=== PATIENT | female | born 1930 | race African-American/Black ===

== ENCOUNTER 2018-08-22 14:42 | Observation (INO) | payer BC, OTHER ==
--- NOTE | 2018-08-22 14:53 | PDOC ---
Rapid Medical Evaluation Time Seen by Provider: 08/22/18 14:48 Medical Evaluation: 08/22/18 14:50 I have performed a brief in-person evaluation of this patient. The patient presents with a chief complaint of: RIAVS x3 days Pertinent physical exam findings: trace pedal edema. Lungs CTAB. Regular tachycardic. No m/r/g. I have ordered the following: cardiac workup The patient will proceed to the ED for further evaluation. Discharge Disposition - Diagnosis RIVAS (dyspnea on exertion) - Referrals - Patient Instructions - Post Discharge Activity
[2018-08-22 15:39] LABS: BASO % 0.5 % (0-2.0); EOS % 1.5 % (0-4.5); HEMATOCRIT 40.9 % (32.4-45.2); HEMOGLOBIN 13.3 GM/dL (10.7-15.3); LYMPH % 25.9 % (8-40); MCH 29.2 pg (25.7-33.7); MCHC 32.5 g/dl (32.0-36.0); MEAN CELL VOLUME 89.8 fl (80-96); NEUT % 61.1 % (42.8-82.8); PLATELET COUNT 130 K/MM3 (134-434); RBC 4.55 M/mm3 (3.60-5.2); RDW 13.7 % (11.6-15.6); WHITE BLOOD COUNT 4.3 K/mm3 (4.0-10.0)
[2018-08-22 15:48] LABS: INR 1.66 (0.83-1.09); PROTHROMBIN TIME (PATIENT) 19.7 SEC (9.7-13.0)
[2018-08-22 16:33] LABS: ALK PHOS 79 U/L (45-117); ANION GAP 6 MMOL/L (8-16); BILIRUBIN,TOTAL 0.6 mg/dL (0.2-1); BLOOD UREA NITROGEN 12 mg/dL (7-18); CALCIUM 8.7 mg/dL (8.5-10.1); CHLORIDE 108 mmol/L (98-107); CO2 27 mmol/L (21-32); CREATININE 0.8 mg/dL (0.55-1.3); GLUCOSE,RANDOM 91 mg/dL (74-106); N-TERMINAL BNP 461.4 pg/ml (5-450); POTASSIUM 3.9 mmol/L (3.5-5.1); SGOT/AST 26 U/L (15-37); SGPT/ALT 25 U/L (13-61); SODIUM 141 mmol/L (136-145); TOT PROT 7.5 g/dl (6.4-8.2)
--- NOTE | 2018-08-22 16:59 | PDOC ---
History of Present Illness - General Chief Complaint: Chest Pain Stated Complaint: SOB, CHEST PAIN Time Seen by Provider: 08/22/18 14:48 History Source: Patient - History of Present Illness Timing/Duration: reports: other Associated Symptoms: denies: cough, fever/chills, wheezing Past History - Past Medical History Allergies/Adverse Reactions: Allergies Allergy/AdvReac Type Severity Reaction Status Date / Time No Known Allergies Allergy Verified 08/22/18 15:13 Home Medications: Ambulatory Orders Apixaban [Eliquis] 0 mg PO DAILY 08/22/18 COPD: No - Immunization History Immunization Up to Date: Yes - Suicide/Smoking/Psychosocial Hx Smoking History: Never smoked Hx Alcohol Use: No Drug/Substance Use Hx: No Review of Systems - Review of Systems Constitutional: No: Chills, Fever Respiratory: Yes: Shortness of Breath. No: Cough Cardiac (ROS): No: Chest Pain, Lightheadedness, Palpitations, Syncope *Physical Exam - Vital Signs Last Vital Signs Temp Pulse Resp BP Pulse Ox 97.9 F 96 H 16 137/78 95 08/22/18 14:54 08/22/18 14:54 08/22/18 14:54 08/22/18 14:54 08/22/18 16:22 - Physical Exam General Appearance: Yes: Appropriately Dressed, Apparent Distress HEENT: positive: Normal Voice Neck: positive: Supple Respiratory/Chest: positive: Chest Tender, Lungs Clear. negative: Normal Breath Sounds Cardiovascular: positive: Regular Rate, S1, S2 Gastrointestinal/Abdominal: positive: Soft. negative: Tender Extremity: positive: Normal Inspection. negative: Swelling Integumentary: positive: Dry, Warm Neurologic: positive: Fully Oriented, Alert, Normal Mood/Affect Moderate Sedation - Procedure Monitoring Vital Signs: Procedure Monitoring Vital Signs Temperature 97.9 F 08/22/18 14:54 Pulse Rate 96 H 08/22/18 14:54 Respiratory Rate 16 08/22/18 14:54 Blood Pressure 137/78 08/22/18 14:54 O2 Sat by Pulse Oximetry (%) 95 08/22/18 16:22 ED Treatment Course - LABORATORY CBC & Chemistry Diagram: 08/22/18 15:26 08/22/18 15:26 - ADDITIONAL ORDERS Additional order review: Laboratory Results 08/22/18 08/22/18 15:26 15:26 PT with INR 19.70 H INR 1.66 H Sodium 141 Potassium 3.9 Chloride 108 H Carbon Dioxide 27 Anion Gap 6 L BUN 12 Creatinine 0.8 Creat Clearance w eGFR > 60 Random Glucose 91 Calcium 8.7 Magnesium 2.0 Total Bilirubin 0.6 AST 26 ALT 25 Alkaline Phosphatase 79 Creatine Kinase 131 Troponin I < 0.02 B-Natriuretic Peptide 461.4 H Total Protein 7.5 Albumin 4.0 08/22/18 15:26 RBC 4.55 MCV 89.8 MCHC 32.5 RDW 13.7 MPV 10.0 Neutrophils % 61.1 Lymphocytes % 25.9 Monocytes % 11.0 H Eosinophils % 1.5 Basophils % 0.5 Medical Decision Making - Medical Decision Making 08/22/18 16:58 88 yo F, on eliquis "to prevent stroke" per pt but denies h/o TIA/CVA or any other medical hx, currently works and teach swimming per pt, here w/ SOB x 3 days, mostly with exertion and when tying my shoe laces per pt, No CP, diaphoresis. n/v. No h/o same. No recent cardiac w/u See exam RIVAS Stable and well terra in ED -ekg -cxr -labs -anticipate admission 08/22/18 17:14 08/22/18 17:36 EKG/cxr/labs unremarkable. Will admit to obs of stress/echo as d/w ED attg *DC/Admit/Observation/Transfer Diagnosis at time of Disposition: RIVAS (dyspnea on exertion) - Discharge Dispostion Condition at time of disposition: Fair Decision to Admit order: Yes - Referrals Referrals: South Wolfe MD [Primary Care Provider] - - Patient Instructions - Post Discharge Activity
--- NOTE | 2018-08-22 18:00 | EKG ---
Test Reason : Blood Pressure : / mmHG Vent. Rate : 078 BPM Atrial Rate : 078 BPM P-R Int : 184 ms QRS Dur : 116 ms QT Int : 422 ms P-R-T Axes : 036 -53 081 degrees QTc Int : 481 ms NORMAL SINUS RHYTHM LEFT AXIS DEVIATION SEPTAL INFARCT , AGE UNDETERMINED ABNORMAL ECG NO PREVIOUS ECGS AVAILABLE Confirmed by JANNETH GARIBAY MD ([id number]) on 08/22/2018 6:00:17 PM Referred By: Confirmed By:JANNETH GARIBAY MD
--- NOTE | 2018-08-22 19:57 | HP ---
CHIEF COMPLAINT: Shortness of breath PCP: Aiden HISTORY OF PRESENT ILLNESS: 88yo woman, with unclear medical history (on eliquis to "prevent stroke" and says she has high cholesterol) c/o shortness of breath for the past 3 days. Pt reports that she went to see her PCP- Dr. Wolfe and he told her to come to ER to be evaluated. Negative orthopnea, denied cough, chest pain, or palpitations. In ER, patient was found to be ambulating across hallway. ER course was notable for: (1) EKG (2) CXR (3) Recent Travel: denied PAST MEDICAL HISTORY: DLP, cardiac arrythmia? PAST SURGICAL HISTORY: none Social History: Smoking: no Alcohol: no Drugs: no Family History: none reported Allergies No Known Allergies Allergy (Verified 08/22/18 15:13) HOME MEDICATIONS: Home Medications Medication Instructions Recorded Apixaban [Eliquis] 0 mg PO DAILY 08/22/18 REVIEW OF SYSTEMS CONSTITUTIONAL: Absent: fever, chills, diaphoresis, generalized weakness, malaise, loss of appetite, weight change HEENT: Absent: rhinorrhea, nasal congestion, throat pain, throat swelling, difficulty swallowing, mouth swelling, ear pain, eye pain, visual changes CARDIOVASCULAR: Absent: chest pain, syncope, palpitations, irregular heart rate, lightheadedness , peripheral edema RESPIRATORY: Absent: cough, , orthopnea, wheezing, stridor, hemoptysis Present: shortness of breath, dyspnea with exertion GASTROINTESTINAL: Absent: abdominal pain, abdominal distension, nausea, vomiting, diarrhea, constipation, melena, hematochezia GENITOURINARY: Absent: dysuria, frequency, urgency, hesitancy, hematuria, flank pain, genital pain MUSCULOSKELETAL: Absent: myalgia, arthralgia, joint swelling, back pain, neck pain SKIN: Absent: rash, itching, pallor HEMATOLOGIC/IMMUNOLOGIC: Absent: easy bleeding, easy bruising, lymphadenopathy, frequent infections ENDOCRINE: Absent: unexplained weight gain, unexplained weight loss, heat intolerance, cold intolerance NEUROLOGIC: Absent: headache, focal weakness or paresthesias, dizziness, unsteady gait, seizure, mental status changes, bladder or bowel incontinence PSYCHIATRIC: Absent: anxiety, depression, suicidal or homicidal ideation, hallucinations. PHYSICAL EXAMINATION Vital Signs - 24 hr 08/22/18 08/22/18 14:54 16:22 Temperature 97.9 F Pulse Rate 96 H Respiratory 16 Rate Blood Pressure 137/78 O2 Sat by Pulse 95 95 Oximetry (%) GENERAL: Awake, alert, and fully oriented, in no acute distress. HEAD: Normal with no signs of trauma. EYES: Pupils equal, round and reactive to light, extraocular movements intact, sclera anicteric, conjunctiva clear. No lid lag. EARS, NOSE, THROAT: Ears normal, nares patent, oropharynx clear without exudates. Moist mucous membranes. NECK: Normal range of motion, supple without lymphadenopathy, JVD, or masses. LUNGS: Breath sounds equal, clear to auscultation bilaterally. No wheezes, and no crackles. No accessory muscle use. HEART: Regular rate and rhythm, normal S1 and S2 without murmur, rub or gallop. ABDOMEN: Soft, nontender, not distended, normoactive bowel sounds, no guarding, no rebound, no masses. MUSCULOSKELETAL: Normal range of motion at all joints. No bony deformities or tenderness. No CVA tenderness. UPPER EXTREMITIES: 2+ pulses, warm, well-perfused. No cyanosis. No clubbing. No peripheral edema. LOWER EXTREMITIES: 2+ pulses, warm, well-perfused. No calf tenderness. No peripheral edema. NEUROLOGICAL: Cranial nerves II-XII intact. Normal speech. Normal gait. PSYCHIATRIC: irritated mood SKIN: Warm, dry, normal turgor, no rashes or lesions noted, normal capillary refill. Laboratory Results - last 24 hr 08/22/18 08/22/18 08/22/18 15:26 15:26 15:26 WBC 4.3 RBC 4.55 Hgb 13.3 Hct 40.9 MCV 89.8 MCH 29.2 MCHC 32.5 RDW 13.7 Plt Count 130 L MPV 10.0 Absolute Neuts (auto) 2.7 Neutrophils % 61.1 Lymphocytes % 25.9 Monocytes % 11.0 H Eosinophils % 1.5 Basophils % 0.5 Nucleated RBC % 0 PT with INR 19.70 H INR 1.66 H Sodium 141 Potassium 3.9 Chloride 108 H Carbon Dioxide 27 Anion Gap 6 L BUN 12 Creatinine 0.8 Creat Clearance w eGFR > 60 Random Glucose 91 Calcium 8.7 Magnesium 2.0 Total Bilirubin 0.6 AST 26 ALT 25 Alkaline Phosphatase 79 Creatine Kinase 131 Troponin I < 0.02 B-Natriuretic Peptide 461.4 H Total Protein 7.5 Albumin 4.0 ekg reviewed cxr reviewed ASSESSMENT/PLAN: #88yo woman with isolated shortness of breath and no clinical evidence of acute cardiac or pulmonary disease at this time, including CHF. 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 Troponin was negative x1. Vital signs currently wnl. Uncertain medications (patient does not remember her medications) and will have to reconcile in morning. -obs- tele -trend troponin -cardiology consult was placed -echo orderd -atorvastatin 10mg daily for dyslipidemia -c/w eliquis 2.5mg bid, will verify reason with PCP (also DVT ppx) -low Na diet ordered -reconcile medications in am Visit type - Emergency Visit Emergency Visit: Yes Care time: The patient presented to the Emergency Department on the above date and was hospitalized for further evaluation of their emergent condition. - New Patient This patient is new to me today: Yes Date on this admission: 08/22/18 - Critical Care Critical Care patient: No
[2018-08-22] MEDS ORDERED: APIXABAN 5 MG TABLET PO ONE (22:49)
[2018-08-22] MEDS: APIXABAN 2.5 MG TABLET PO SCH (23:22)
[2018-08-23 02:35] VITALS: BMI 34.7
[2018-08-23 07:27] LABS: HEMOGLOBIN 13.3 GM/dL (10.7-15.3); MCH 28.7 pg (25.7-33.7); MCHC 31.7 g/dl (32.0-36.0); MEAN CELL VOLUME 90.4 fl (80-96); MEAN PLT VOLUME 10.2 fl (7.5-11.1); PLATELET COUNT 137 K/MM3 (134-434); RBC 4.64 M/mm3 (3.60-5.2); RDW 13.9 % (11.6-15.6); WHITE BLOOD COUNT 4.2 K/mm3 (4.0-10.0)
[2018-08-23 08:08] LABS: ANION GAP 7 MMOL/L (8-16); BLOOD UREA NITROGEN 10 mg/dL (7-18); CALCIUM 8.9 mg/dL (8.5-10.1); CHLORIDE 107 mmol/L (98-107); CO2 26 mmol/L (21-32); CREATININE 0.8 mg/dL (0.55-1.3); GLUCOSE,RANDOM 96 mg/dL (74-106); POTASSIUM 3.8 mmol/L (3.5-5.1); SODIUM 140 mmol/L (136-145)
[2018-08-23 08:11] LABS: CHOLESTEROL 191 mg/dL (50-200); HDL CHOLESTEROL 59 mg/dL (40-60); TRIGLYCERIDES 82 mg/dL (0-150)
--- NOTE | 2018-08-23 09:25 | PN ---
Progress Note, Physician Chief Complaint: AWAKE ALERT SENT FROM MY OFFICE BECAUSE SHE HAD DYSPNEA ON EXERTION C/O PRESSURE TO CHEST/STERNAL AREA - Current Medication List Current Medications: Active Medications Apixaban (Eliquis -) 2.5 mg PO BID [facility] Last Admin: 08/22/18 23:22 Dose: 2.5 mg Atorvastatin Calcium (Lipitor -) 10 mg PO [facility] - Objective Vital Signs: Vital Signs Temperature 98.0 F 08/23/18 04:03 Pulse Rate 74 08/23/18 04:03 Respiratory Rate 16 08/23/18 04:03 Blood Pressure 145/70 08/23/18 04:03 O2 Sat by Pulse Oximetry (%) 93 L 08/23/18 02:48 Constitutional: Yes: Mild Distress Eyes: Yes: WNL HENT: Yes: WNL Neck: Yes: WNL Cardiovascular: Yes: Pulse Irregular Respiratory: Yes: Diminished Gastrointestinal: Yes: WNL Genitourinary: Yes: WNL Musculoskeletal: Yes: WNL Extremities: Yes: WNL Edema: No Peripheral Pulses WNL: Yes Integumentary: Yes: WNL Wound/Incision: Yes: Clean/Dry Neurological: Yes: Unsteady Gait ...Motor Strength: LLE, RLE Psychiatric: Yes: WNL Labs: CBC, BMP 08/23/18 06:30 08/23/18 06:30 INR, PTT INR 1.66 (0.83-1.09) H 08/22/18 15:26 Problem List - Problems (1) Atrial fibrillation Code(s): I48.91 - UNSPECIFIED ATRIAL FIBRILLATION (2) Lipidemia Code(s): E78.5 - HYPERLIPIDEMIA, UNSPECIFIED (3) RIVAS (dyspnea on exertion) Code(s): R06.09 - OTHER FORMS OF DYSPNEA Assessment/Plan ECHO AND STRESS TEST ORDERED H/O AFIB HAS SEEN DR MCDANIEL AT [facility] IN THE PAST PATIENT IS COMFORTABLE LDL 109, GOAL IS <100 BP CONTROLLED
[2018-08-23] MEDS ORDERED: REGADENOSON 0.4 MG/5 ML PRE-FILLED SYRINGE IVPUSH ONE ×2 (10:27→10:45)
[2018-08-23 12:25] VITALS: TEMP 97.4
--- NOTE | 2018-08-23 13:05 | CON.PULM ---
Consult Consult Specialty:: PULMONARY Referred by:: Dr. Wolfe Reason for Consultation:: shortness of breath - History of Present Illness Chief Complaint: shortness of breath History of Present Illness: 88yo female with h/o hypercholesterolemia, atrial fibrillation on anticoagulation who was sent from PMD office after experiencing episodes of shortness of breath. She reports it only occurs when she sits down and lifts her legs. No chest pain or discomfort. No cough but with occasional wheezing. No fevers, chills or sweats. She is a never smoker, no occupational exposures. Denies history of asthma or COPD. - History Source History Provided By: Patient, Medical Record Limitations to Obtaining History: No Limitations - Past Medical History Cardio/Vascular: Yes: AFIB, Hyperlipdemia ...: No - Alcohol/Substance Use Hx Alcohol Use: No - Smoking History Smoking history: Never smoked Have you smoked in the past 12 months: No Home Medications - Allergies Allergies/Adverse Reactions: Allergies Allergy/AdvReac Type Severity Reaction Status Date / Time No Known Allergies Allergy Verified 08/22/18 15:13 - Home Medications Home Medications: Ambulatory Orders Apixaban [Eliquis] 0 mg PO DAILY 08/22/18 Rivaroxaban [Xarelto -] 20 mg PO DAILY 08/23/18 Rosuvastatin Calcium [Crestor] 20 mg PO DAILY 08/23/18 Review of Systems - Review of Systems Constitutional: denies: Chills, Fever, Weakness Eyes: denies: Recent Change in Vision HENT: denies: Nasal Congestion, Throat Pain Neck: denies: Stiffness, Tenderness Cardiovascular: reports: Shortness of Breath. denies: Chest Pain, Palpitations Respiratory: reports: Wheezing. denies: Cough, Hemoptysis Gastrointestinal: denies: Abdominal Pain, Nausea, Vomiting Genitourinary: denies: Dysuria, Hematuria Neurological: denies: Dizziness, Headache Endocrine: denies: Unexplained Weight Loss Physical Exam Vital Sings: Vital Signs Temperature 97.4 F L 08/23/18 08:00 Pulse Rate 74 08/23/18 08:00 Respiratory Rate 18 08/23/18 08:00 Blood Pressure 145/69 08/23/18 08:00 O2 Sat by Pulse Oximetry (%) 93 L 08/23/18 02:48 Constitutional: Yes: Calm Eyes: Yes: Conjunctiva Clear, EOM Intact HENT: Yes: Atraumatic, Normocephalic Neck: Yes: Supple, Trachea Midline Cardiovascular: Yes: Regular Rate and Rhythm Respiratory: Yes: Diminished (decreased breath sounds at the bases). No: Rhonchi, Wheezes ...Clubbing: No Gastrointestinal: Yes: Normal Bowel Sounds, Soft. No: Tenderness Edema: Yes (trace) Labs: CBC, BMP 08/23/18 06:30 08/23/18 06:30 Imaging - Results Chest X-ray: Report Reviewed, Image Reviewed (no infiltrates) Problem List - Problems (1) RIVAS (dyspnea on exertion) Code(s): R06.09 - OTHER FORMS OF DYSPNEA (2) Atrial fibrillation Code(s): I48.91 - UNSPECIFIED ATRIAL FIBRILLATION Assessment/Plan Episode of Shortness of Breath resolved Atrial Fibrillation Hypercholesterolemia - f/u echocardiogram - f/u stress test - rate control - continue anticoagulation - outpt PFTs for wheezing Thank you for this consult Charli Chin MD
[2018-08-23] MEDS: APIXABAN 2.5 MG TABLET PO SCH (13:39)
--- NOTE | 2018-08-23 13:39 | ECHO ---
Name: EYAD ROSAS Exam:Adult Echocardiogram Study Date: 08/23/2018 07:29 AM Age: 88 yrs Reason For Study: SOB Height: 64 in Weight: 190 lb BSA: 1.9 m2 MMode/2D Measurements & Calculations IVSd: 1.2 cm Ao root diam: 3.2 cm LVIDd: 4.8 cm LA dimension: 3.2 cm LVIDs: 3.2 cm ACS: 1.9 cm LVPWd: 1.1 cm IVSs: 1.4 cm LVPWs: 1.4 cm EDV(Teich): 107.3 ml ESV(Teich): 41.1 ml Doppler Measurements & Calculations MV E max chago: 74.8 cm/sec Ao V2 max: 111.8 cm/sec MV A max chago: 99.5 cm/sec Ao max P.0 mmHg MV E/A: 0.75 Ao V2 mean: 78.6 cm/sec Ao mean P.7 mmHg Ao V2 VTI: 24.4 cm AI P1/2t: 614.2 msec AI max chago: 349.2 cm/sec MR max chago: 497.0 cm/sec AI max P.0 mmHg MR max P.8 mmHg AI dec slope: 166.5 cm/sec2 TR max chago: 250.4 cm/sec Med Peak E' Chago: 3.5 cm/sec TR max P.1 mmHg Med E/e': 21.3 Lat Peak E' Chago: 5.6 cm/sec Lat E/e': 13.5 Procedure A complete two-dimensional transthoracic echocardiogram was performed (2D, M-mode, Doppler and color flow Doppler). Left Ventricle There is mild concentric left ventricular hypertrophy. The left ventricular ejection fraction is norm al. Ejection Fraction = 55-60%. The left ventricular wall motion is normal. Right Ventricle The right ventricle is normal in size and function. Atria Normal left and right atrial size and function. Mitral Valve There is mild mitral regurgitation. Tricuspid Valve There is trace tricuspid regurgitation. Right ventricular systolic pressure is normal. Aortic Valve The aortic valve is trileaflet. No hemodynamically significant valvular aortic stenosis. Trace aortic regurgitation. Pulmonic Valve There is no pulmonic valvular regurgitation. Great Vessels The aortic root is normal size. Pericardium/Pleura There is no pericardial effusion. Interpretation Summary There is mild concentric left ventricular hypertrophy. The left ventricular ejection fraction is normal. The right ventricle is normal in size and function. There is mild mitral regurgitation. There is trace tricuspid regurgitation. Trace aortic regurgitation. MD Cesar Calvo 08/23/2018 01:38 PM
--- NOTE | 2018-08-23 14:03 | DS ---
Physical Examination Vital Signs: Vital Signs Temperature 97.4 F L 08/23/18 08:00 Pulse Rate 74 08/23/18 08:00 Respiratory Rate 18 08/23/18 08:00 Blood Pressure 145/69 08/23/18 08:00 O2 Sat by Pulse Oximetry (%) 93 L 08/23/18 02:48 Constitutional: Yes: No Distress Eyes: Yes: WNL HENT: Yes: WNL Neck: Yes: WNL Cardiovascular: Yes: WNL Respiratory: Yes: WNL Gastrointestinal: Yes: WNL Musculoskeletal: Yes: WNL Extremities: Yes: WNL Edema: No Peripheral Pulses WNL: Yes Integumentary: Yes: WNL Wound/Incision: Yes: Clean/Dry Neurological: Yes: WNL ...Motor Strength: WNL Labs: CBC, BMP 08/23/18 06:30 08/23/18 06:30 Discharge Summary Reason For Visit: DYSPNEA ON EXCERTION Current Active Problems Atrial fibrillation (Acute) RIVAS (dyspnea on exertion) (Acute) Lipidemia (Acute) Procedures: Principal: STRESS TEST Hospital Course: ADMITTED ECHO/CAROTID DOPPLERS NORMAL, STRESS TEST NORMAL, WILL NEED PFT OUTPATIENT Condition: Fair - Instructions Referrals: South Wolfe MD [Primary Care Provider] - Disposition: HOME - Home Medications Comprehensive Discharge Medication List: Ambulatory Orders Apixaban [Eliquis] 0 mg PO DAILY 08/22/18 Rivaroxaban [Xarelto -] 20 mg PO DAILY 08/23/18 Rosuvastatin Calcium [Crestor] 20 mg PO DAILY 08/23/18
[2018-08-23 14:22] VITALS: BP 157/95; PULSE 71
--- NOTE | 2018-08-23 15:24 | CON.CARD ---
Consult Consult Specialty:: Cardiology Referred by:: rome thomson Reason for Consultation:: sob - History of Present Illness Chief Complaint: sob History of Present Illness: 88yo woman with unclear pmhx who was sent from Dr. Wolfe's office for sob last few days. No chest pain or palpitations. No pnd, orthopnea, or syncope. 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 Last swam 4 days ago. Feels fine now. On apixaban but unclear why. - History Source History Provided By: Patient, Medical Record Limitations to Obtaining History: No Limitations - Past Medical History Cardio/Vascular: Yes: AFIB, Hyperlipdemia ...: No - Alcohol/Substance Use Hx Alcohol Use: No - Smoking History Smoking history: Never smoked Have you smoked in the past 12 months: No Home Medications - Allergies Allergies/Adverse Reactions: Allergies Allergy/AdvReac Type Severity Reaction Status Date / Time No Known Allergies Allergy Verified 08/22/18 15:13 - Home Medications Home Medications: Ambulatory Orders Apixaban [Eliquis] 0 mg PO DAILY 08/22/18 Rivaroxaban [Xarelto -] 20 mg PO DAILY 08/23/18 Rosuvastatin Calcium [Crestor] 20 mg PO DAILY 08/23/18 Vital Signs: Vital Signs Temperature 97.4 F L 08/23/18 08:00 Pulse Rate 71 08/23/18 12:00 Respiratory Rate 18 08/23/18 12:00 Blood Pressure 157/95 08/23/18 12:00 O2 Sat by Pulse Oximetry (%) 93 L 08/23/18 09:00 Constitutional: Yes: No Distress Neck: Yes: Supple Respiratory: Yes: CTA Bilaterally Gastrointestinal: Yes: Soft Cardiovascular: Yes: WNL, Regular Rate and Rhythm JVD: No Carotid Bruit: No PMI: Non-Displaced Heart Sounds: Yes: S1, S2 Murmur: No: Systolic Murmur Edema: LLE: Trace, RLE: Trace - Other Data Labs, Other Data: CBC, BMP 08/23/18 06:30 08/23/18 06:30 INR, PTT INR 1.66 (0.83-1.09) H 08/22/18 15:26 Troponin, BNP 08/22/18 08/22/18 08/23/18 15:26 23:20 06:30 Troponin I < 0.02 0.02 < 0.02 B-Natriuretic Peptide 461.4 H Troponin, BNP 08/22/18 08/22/18 08/23/18 15:26 23:20 06:30 Troponin I < 0.02 0.02 < 0.02 B-Natriuretic Peptide 461.4 H Imaging - Results Chest X-ray: Report Reviewed EKG: Image Reviewed Assessment/Plan 88yo woman with unclear pmhx who was sent from Dr. Wolfe's office for sob last few days. No chest pain or palpitations. No pnd, orthopnea, or syncope. 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 Last swam 4 days ago. Feels fine now. On apixaban but unclear why. 1) SOB EKG: sinus rhythm, lad, septal infarct pattern BNP 400s CXR no effusions BP wnl Echocardiogram normal LVEF and no significant valve disease. Sinus on tele. NST today with no ischemia. -No further cardiac testing at this time. Unclear why patient is on anticoagulation. Would clarify with pmd. Also clarify if patient is on apixaban or rivaroxaban. If on apixaban dosing is 5mg bid given age, weight, and cr if being treated for afib. But would clarify if reason on lower dose with pmd. Will sign off.
[2018-08-23] MEDS ORDERED: ATORVASTATIN CA 10 MG TABLET (FP) PO SCH (22:00)
== END 2018-08-23 15:31 | disposition home or self-care (01) ==
LOC: JER 14:42 → JERBED 19:33 → J4S 08-23 02:11
PROVIDERS: ADMIT Internal Medicine; ATTEND Family Medicine
PROC: 3E033GC Introduction of Other Therapeutic Substance into Peripheral Vein, Percutaneous Approach (ICD-10-PCS; principal; 2018-08-22)
DX: R06.09 Other forms of dyspnea (principal); Z79.01 Long term (current) use of anticoagulants; I48.91 Unspecified atrial fibrillation; E78.5 Hyperlipidemia, unspecified
CPT/HCPCS: 36415; 71046-TC-FY; 78452-TC; 80048; 80053; 80061; 82550; 83036; 83721; 83735; 83880; 84484; 85025; 85027; 85610; 93005; 93010; 93017; 93306-TC; 93880-TC; 96374; 97116-GP; 97161-GP; 99284-25; A9502; G0378; J2785